=== PATIENT | female | born 1985 | race Caucasian/White ===

== ENCOUNTER 2016-05-30 11:33 | Emergency (ER) ==
[2016-05-30 12:20] LABS: MANUAL DIFF NEEDED? NO
[2016-05-30 12:25] LABS: BASO% 0.3 % (0.0-0.8); EOS# 0.19 X1000 (0.0-0.7); HEMOGLOBIN 11.5 g/dL (12.0-16.0); IMM GRAN# 0.01 X1000 (0.0-0.04); IMM GRAN% 0.2 % (0.0-0.5); LYMPH# 1.13 X1000 (1.2-3.4); LYMPH% 17.7 % (20.5-51.1); MCH 28.1 PG (27-31); MCHC 32.9 g/dL (33-37); MCV 85.6 FL (81-99); MONO% 7.8 % (1.7-9.3); MPV 12.4 FL (7.4-10.4); PLT 151 X1000 (130-400); RBC 4.09 XMIL (4.2-5.4)
[2016-05-30 12:35] LABS: AGAP 9; ALKALINE PHOSPHATASE 91 U/L (32-104); BUN 8 mg/dL (8-22); CALCIUM 8.7 mg/dL (8.8-10.2); CHLORIDE 103 mmol/L (98-107); COSMO 270; GOT 18 U/L (10-30); GPT 17 U/L (10-36); POTASSIUM 4.3 mmol/L (3.5-5.1); SODIUM 136 mmol/L (136-145); TCO2 24 mmol/L (25-35); TOTAL PROTEIN 7.1 g/dL (6.3-8.3)
--- NOTE | 2016-05-30 13:01 | PROVIDER DOCUMENTATION ---
HPI-General Adult - General Source: patient - History of Present Illness -Gen Adult Nature of Presenting Problems: Reports 10 weeks confirmed by [facility] which will not do an ultrasound due to pt had a tubal . 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 Reports been having right leg calf cramp x5 days. Reports takes lovonox when she can afford it. 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 Hx fo DVT. Reports sob x 24 hours worse with exertion. Reports last time she was her heart rate went up and had elevated BP went to cardiolgist but never followed back up. Location of Pain/Injury: reports: lower extremity Quality of Pain: reports: cramping Severity: reports: severe Onset/Duration: reports: 5 days ago Timing: reports: still present Similar Symptoms Previously?: Yes Recently seen or treated by another doctor?: No <Declan Campo - Last Filed: 05/30/16 13:08> - History of Present Illness -Gen Adult Nature of Presenting Problems: <Laney Daigle - Last Filed: 05/30/16 15:23> - General Chief Complaint: Shortness of Breath Stated Complaint: 10 WKS/CHEST PAINS/HX BLOOD CLOTS Time Seen by Provider: 05/30/16 12:53 Allergies/Adverse Reactions: Patient Allergies Allergy/AdvReac Type Severity Reaction Status Date / Time No Known Allergies Allergy Verified 01/04/15 07:02 Review of Systems - Adult - REVIEW OF SYSTEMS - ADULT Constitutional: denies: chills, fever, fatique Eyes: reports: no symptoms reported Ears, Nose, Mouth & Throat: reports: no symptoms reported Cardiovascular: denies: chest pain, irregular heart rate, orthopnea, syncope Respiratory: reports: shortness of breath. denies: cough, pleurisy, wheezing Gastrointestinal: reports: no symptoms reported Genitourinary: reports: no symptoms reported Musculoskeletal: reports: see HPI, frequent leg cramps (right leg x 5 days). denies: joint pain, joint swelling Integumentary: reports: no symptoms reported Neurological: reports: no symptoms reported Psychiatric: reports: no symptoms reported Endocrine: reports: no symptoms reported Hematologic/Lymphatic: reports: no symptoms reported Allergic/Immunologic: reports: no symptoms reported All Other Systems: Reviewed and Negative <Declan Campo - Last Filed: 05/30/16 13:08> Past History - Adult - PAST MEDICAL HISTORY-ADULT Review of Records: reports: Nursing Assessment Review Major Childhood Illnesses: reports: denies history Cardiovascular: reports: denies history Gastrointestinal: reports: colitis, GERD Endocrine/Immune: reports: other (blood clot disorder) - PRIOR SURGERIES/PROCEDURES Surgical/Procedure History: reports: none - IMMUNIZATION STATUS Childhood Immunizations: See Nurse Assessment Flu Vaccine: See Nurse Assessment - FAMILY HISTORY Family History: reviewed, not pertinent - SOCIAL HISTORY Smoking: denies Substance Use: none/never <CampoDeclan - Last Filed: 05/30/16 13:08> - PAST MEDICAL HISTORY-ADULT Major Childhood Illnesses: reports: denies history Cardiovascular: reports: denies history Respiratory: reports: denies history Gastrointestinal: reports: denies history Obstetrical/Gynecological: reports: denies history Genitourinary: reports: denies history Musculoskeletal: reports: denies history Neurological: reports: denies history Endocrine/Immune: reports: denies history Other Conditions: reports: denies history - PRIOR SURGERIES/PROCEDURES Surgical/Procedure History: reports: reviewed, not pertinent - PRIOR HOSPITALIZATIONS Prior Hospitalizations: reports: other - IMMUNIZATION STATUS Childhood Immunizations: UTD Flu Vaccine: See Nurse Assessment - FAMILY HISTORY Family History: reviewed, not pertinent <Laney Daigle - Last Filed: 05/30/16 15:23> Physical Exam-General - PHYSICAL EXAM-ADULT Initial Vital Signs Reviewed: Yes - CONSTITUTIONAL General Appearance: appears well, alert, no apparent distress - EYES Eyes: PERRL/EOMI, pink conjunctivae - HEAD, EARS, NOSE, MOUTH & THROAT HENMT: normocephalic/atraumatic, moist mucous membranes, normal ENT inspection - NECK Neck: non-tender, full range of motion, supple, normal inspection - RESPIRATORY Respiratory: chest non-tender, lungs clear, normal breath sounds, no pleuratic chest pain, no respiratory distress, no accessory muscle use - CARDIOVASCULAR Cardiovascular: normal peripheral pulses, regular rate, rhythm, no edema - GASTROINTESTINAL (ABDOMEN) Abdominal Exam: normal bowel sounds, non tender, soft, no organomegaly, no pulsatile mass - LYMPHATIC Lymphatic: no adenopathy - MUSCULOSKELETAL Back Exam: normal inspection, no CVA tenderness, no vertebral tenderness Extremity: normal range of motion, normal gait, no pedal edema, normal capillary refill, tenderness (right calf upon palpation). negative: erythema, inflammation, swelling - SKIN Integumentary: normal color, normal turgor, warm/dry - NEUROLOGIC Neurologic: grossly normal, no motor/sensory deficits - PSYCHIATRIC Psych/Mental Status: normal mood/affect, normal thought content, normal thought process, oriented x 3 <Declan Campo - Last Filed: 05/30/16 13:08> Progress - PLAN OF CARE/RESULTS Progress/Plan/Lab Results: Orders Category Date Time Status CBC WITH DIFF [HEME] Stat Lab 05/30/16 11:54 Completed COMPREHENSIVE METABOLIC PANEL [CHEM] Stat Lab 05/30/16 11:54 Completed D-DIMER PL [COAG] Stat Lab 05/30/16 11:54 Completed PRO B-NATRIURETIC PEPTIDE Stat Lab 05/30/16 11:54 Completed QUANT TEST Stat Lab 05/30/16 11:54 Received UA [URINALYSIS PL] [URINALYSIS] Stat Lab 05/30/16 12:13 Ordered US [Venous U/S Bilateral Legs] [CV] Stat Ther 05/30/16 12:12 Ordered Venous U/S Right Leg [CV] Stat Ther 05/30/16 12:57 Ordered Vital Signs - 24 hr 05/30/16 11:37 Temperature 97.8 F Pulse Rate 82 Respiratory 18 Rate Blood Pressure 153/89 O2 Sat by Pulse 100 Oximetry Laboratory Tests 05/30/16 05/30/16 05/30/16 11:54 11:54 11:54 WBC RBC Hgb Hct MCV MCH MCHC RDW Std Deviation Plt Count MPV Immature Gran % (Auto) Neut % (Auto) Lymph % (Auto) [place] % (Auto) Eos % (Auto) Baso % (Auto) Immature Gran # (Auto) Neut # (Auto) Lymph # (Auto) [place] # (Auto) Eos # (Auto) Baso # (Auto) D-Dimer 1.80 H Sodium 136 Potassium 4.3 Chloride 103 Carbon Dioxide 24 L Anion Gap 9 BUN 8 Creatinine 0.5 Estimated GFR/1.73 m2 > 60 BUN/Creatinine Ratio 16 Glucose 101 Calculated Osmolality 270 Calcium 8.7 L Total Bilirubin 0.20 AST 18 ALT 17 Alkaline Phosphatase 91 Iqp-P-Yqqtkaxgdua Pept 20 Total Protein 7.1 Albumin 4.0 Globulin 3.0 Albumin/Globulin Ratio 1.0 05/30/16 11:54 WBC 6.39 RBC 4.09 L Hgb 11.5 L Hct 35.0 L MCV 85.6 MCH 28.1 MCHC 32.9 L RDW Std Deviation 12.9 Plt Count 151 MPV 12.4 H Immature Gran % (Auto) 0.2 Neut % (Auto) 71.0 Lymph % (Auto) 17.7 L [place] % (Auto) 7.8 Eos % (Auto) 3.0 Baso % (Auto) 0.3 Immature Gran # (Auto) 0.01 Neut # (Auto) 4.54 Lymph # (Auto) 1.13 L [place] # (Auto) 0.50 Eos # (Auto) 0.19 Baso # (Auto) 0.02 D-Dimer Sodium Potassium Chloride Carbon Dioxide Anion Gap BUN Creatinine Estimated GFR/1.73 m2 BUN/Creatinine Ratio Glucose Calculated Osmolality Calcium Total Bilirubin AST ALT Alkaline Phosphatase Zgw-A-Kvzlfipzmkz Pept Total Protein Albumin Globulin Albumin/Globulin Ratio Elevated D Dimer VQ scan will be done <Declan Campo - Last Filed: 05/30/16 13:08> - PLAN OF CARE/RESULTS Progress/Plan/Lab Results: Vital Signs Temp Pulse Resp BP Pulse Ox 05/30/16 11:37 97.8 F 82 18 153/89 100 No Known Allergies Allergy (Verified 01/04/15 07:02) Ibuprofen/Hydrocodone [Vicoprofen 200/7.5 mg] 1 each PO 3-4XDAY PRN PRN #20 tablet 01/04/15 Methocarbamol [Robaxin-750] 750 mg PO 3-4XDAY PRN #30 tablet 01/04/15 Methylprednisolone [Medrol Dosepak] 4 mg PO DIRECTED #1 package 01/04/15 Laboratory 05/30/16 05/30/16 05/30/16 11:54 11:54 11:54 WBC 6.39 RBC 4.09 L Hgb 11.5 L Hct 35.0 L MCV 85.6 MCH 28.1 MCHC 32.9 L RDW Std Deviation 12.9 Plt Count 151 MPV 12.4 H Immature Gran % (Auto) 0.2 Neut % (Auto) 71.0 Lymph % (Auto) 17.7 L [place] % (Auto) 7.8 Eos % (Auto) 3.0 Baso % (Auto) 0.3 Immature Gran # (Auto) 0.01 Neut # (Auto) 4.54 Lymph # (Auto) 1.13 L [place] # (Auto) 0.50 Eos # (Auto) 0.19 Baso # (Auto) 0.02 D-Dimer Sodium Potassium Chloride Carbon Dioxide Anion Gap BUN Creatinine Estimated GFR/1.73 m2 BUN/Creatinine Ratio Glucose Calculated Osmolality Calcium Total Bilirubin AST ALT Alkaline Phosphatase Orx-D-Zneivzoubev Pept 20 Total Protein Albumin Globulin Albumin/Globulin Ratio Ser , Semi-Qnt 80072.0 05/30/16 05/30/16 11:54 11:54 WBC RBC Hgb Hct MCV MCH MCHC RDW Std Deviation Plt Count MPV Immature Gran % (Auto) Neut % (Auto) Lymph % (Auto) [place] % (Auto) Eos % (Auto) Baso % (Auto) Immature Gran # (Auto) Neut # (Auto) Lymph # (Auto) [place] # (Auto) Eos # (Auto) Baso # (Auto) D-Dimer 1.80 H Sodium 136 Potassium 4.3 Chloride 103 Carbon Dioxide 24 L Anion Gap 9 BUN 8 Creatinine 0.5 Estimated GFR/1.73 m2 > 60 BUN/Creatinine Ratio 16 Glucose 101 Calculated Osmolality 270 Calcium 8.7 L Total Bilirubin 0.20 AST 18 ALT 17 Alkaline Phosphatase 91 Zvu-U-Dpasbqfcpwe Pept Total Protein 7.1 Albumin 4.0 Globulin 3.0 Albumin/Globulin Ratio 1.0 Ser , Semi-Qnt Orders Category Date Time Status CBC WITH DIFF [HEME] Stat Lab 05/30/16 11:54 Completed COMPREHENSIVE METABOLIC PANEL [CHEM] Stat Lab 05/30/16 11:54 Completed D-DIMER PL [COAG] Stat Lab 05/30/16 11:54 Completed PRO B-NATRIURETIC PEPTIDE Stat Lab 05/30/16 11:54 Completed QUANT TEST Stat Lab 05/30/16 11:54 Completed UA [URINALYSIS PL] [URINALYSIS] Stat Lab 05/30/16 12:13 Ordered US [Venous U/S Bilateral Legs] [CV] Stat Ther 05/30/16 12:[address] Mcgee, agrees with treatment, disposition and plan - ULTRASOUND (By Radiology) 1 US Study: Lower Ext (bilateral) Impression: Normal (Negative per vascular) <Laney Daigle - Last Filed: 05/30/16 15:23> Departure <Declan Campo - Last Filed: 05/30/16 13:08> - Departure Time of Disposition Order: 15:22 Certified Medical Emergency: Emergent <Laney Daigle - Last Filed: 05/30/16 15:23> - Departure DIAGNOSIS: Muscle cramp Qualifiers: Weeks of gestation: 10 weeks Qualified Code(s): Z3A.10 - 10 weeks gestation of Disposition: HOME 01 Condition: Stable Additional Instructions: Tylenol for pain. follow up with [facility] Follow Up Instructions: You have been treated by a care provider in the Emergency Department. These instructions are being provided to you so you can have an understanding of how to care for yourself upon discharge. Upon discharge from the Emergency Department, you are responsible for making arrangements for follow-up care by a physician of your choice. Take all prescribed medications as directed. Return to the Emergency Department immediately for any new or worsening symptoms. You may call the Physician Referral phone number at [phone] to obtain a list of Physicians who are taking new patients. Referrals: Peter Chase [Primary Care Provider] - Freddy Vo MD [STAFF PHYSICIAN] - Attestation - Scribe Verification/Attestation Scribe:: Declan Campo Acting as Scribe for:: Laney Daigle Scribe documention review:: This chart was documented by a scribe and accurately reflects the service the provider performed and the decisions made by the provider. <Declan Campo - Last Filed: 05/30/16 13:08> - Physician/ Mid-level Attestation Patient care was provided by Mid-level provider ([employer]/PA):: Yes Mid-level provider:: Laney Daigle Mid-level documentation review:: The Mid-level provider documentation, treatment plan and medical decision making was reviewed by the physician who agrees with all treatment and medical decision making by the P. <Laney Daigle - Last Filed: 05/30/16 15:23> Physician Attestation
[2016-05-30 15:42] VITALS: BP 147/88
--- NOTE | 2016-05-31 07:18 | Extremity Venous Study ---
PROCEDURE NAME: Venous U/S Bilateral Legs - 05/30/2016 VENOUS FLOW EVALUATION: INDICATION: Ten weeks' . Right calf pain. Elevated D dimer. FINDINGS: The deep veins of the lower extremities demonstrate appropriate compressibility and augmentation. No intraluminal thrombus is visualized. There is no evidence for DVT. IMPRESSION: No evidence for deep venous thrombosis bilateral lower extremities.
== END 2016-05-30 15:41 | disposition home or self-care (01) ==
LOC: P.ED 11:33
DX: O26.891 Other specified pregnancy related conditions, first trimester (principal); Z3A.10 10 weeks gestation of pregnancy; R25.2 Cramp and spasm; Z86.718 Personal history of other venous thrombosis and embolism; K21.9 Gastro-esophageal reflux disease without esophagitis; Z79.52 Long term (current) use of systemic steroids
CPT/HCPCS: 36415; 80053; 83880; 84702; 85025; 85379; 93970; 99283